=== PATIENT | female | born 1960 | race Caucasian/White ===

== ENCOUNTER 2019-06-02 07:11 | Day surgery (SDC) | payer OTHER ==
[~2019-06-02] VITALS: Ht 172.7 cm; Wt 60.3 kg
[~2019-06-02 07:11] MED LIST: ASPIR-LOW81 MG PO; LISINOPRIL20 MG PO; OMEGA-31000 MG PO; POTASSIUM ACID T1 GM MISC
--- NOTE | 2019-06-02 08:27 | NUR ---
06/02/19 0827 Noelle Torres 0820 PATIENT ARRIVED DROWSY, RESTING WITH EYES CLOSED. AWAKES TO STIMULUS. OXYGEN SATURATION 98% ON 2L NC. 0826 PATIENT EYES OPENED AND LOOKING AROUND. TITRATED OXYGEN OFF, ENCOURAGED PATIENT TO TAKE DEEP BREATHS.
--- NOTE | 2019-06-02 11:31 | OR ---
[facility] [address], [place] [address] Signed DATE OF OPERATION: 06/02/2019 SURGEON: Mansoor Lacey MD PREOPERATIVE DIAGNOSIS: Screening. POSTOPERATIVE DIAGNOSES: 1. Long redundant colon. 2. [id number] internal hemorrhoids. PROCEDURE: Colonoscopy without biopsy up to the hepatic flexure. ESTIMATED BLOOD LOSS: None. INDICATIONS: Anjelica is a 59-year-old female, asked to see me for her initial screening colonoscopy. She reminded me I helped her with his colonoscopy. She told me she has no lower GI complaints. There is no family history of colon cancer or polyps. I did review colonoscopy with her in detail. She understands the nature of the test along with the risks including, but not limited to gas bloating, crampy abdominal pain, bleeding, perforation requiring surgery, and missed diagnosis. We also discussed the need for IV conscious sedation. She had expressed understanding and wished to proceed. PROCEDURE NOTE: Anjelica was taken in the endoscopy suite and placed in the left lateral decubitus position. We did review her smoking and daily alcohol use. Nevertheless, she did very well with 7 mg of Versed and 200 mcg of fentanyl. A digital rectal exam was performed and this was unremarkable. The adult colonoscope was introduced and advanced under direct visualization of camera. Her prep was quite excellent. We found that she has a very long redundant colon. With moderate amount of effort, we finally made it to the hepatic flexure. We had to use additional sedation, abdominal compression, and rotate Anjelica into the supine position then back into the left lateral decubitus position. We never did make it down in the right colon nor did we have received the ileocecal valve or the cecum. After this, the scope was slowly withdrawn. Indeed, she has a very long redundant colon. We saw no pathology otherwise. The rectum was unremarkable. Upon retroflexion of scope, she has some very minimal routine internal hemorrhoid tissue. The gas was then suctioned out and the colonoscope removed. Anjelica tolerated procedure Electronically Signed By: MANSOOR LACEY MD 06/02/19 1131 PATIENT NAME: ANJELICA FERGUSON OPERATIVE REPORT DATE OF : 64 REPORT #: [id number] PHYSICIAN: MANSOOR LACEY MD PCP: JANEEN METCALF PAC REPORT IS CONFIDENTIAL AND NOT TO BE RELEASED WITHOUT AUTHORIZATION [facility] [address] [place] [id number] Signed quite well. RECOMMENDATIONS: Anjelica will need a barium enema to evaluate the right colon. Then, we will have her follow up in the office to review her studies in detail. MD KHLOE Tapia/MARVL /[id number] cc: CHRIS Bloom MD Copies: MANSOOR LACEY MD ~ Electronically Signed By: MANSOOR LACEY MD 06/02/19 1131 PATIENT NAME: ANJELICA FERGUSON OPERATIVE REPORT DATE OF : 64 REPORT #: [id number] PHYSICIAN: MANSOOR LACEY MD PCP: JANEEN METCALF PAC REPORT IS CONFIDENTIAL AND NOT TO BE RELEASED WITHOUT AUTHORIZATION
== END 2019-06-02 09:10 | disposition home or self-care (01) ==
LOC: OPS 07:11 → DS 07:15 → OPS 08:15
PROVIDERS: Colon & Rectal Surgery
PROC: 0DJD8ZZ Inspection of Lower Intestinal Tract, Via Natural or Artificial Opening Endoscopic (ICD-10-PCS; principal; 2019-06-02 08:15)
DX: Z12.11 Encounter for screening for malignant neoplasm of colon (principal); K64.8 Other hemorrhoids; Q43.8 Other specified congenital malformations of intestine; I10 Essential (primary) hypertension; F17.200 Nicotine dependence, unspecified, uncomplicated; F17.210 Nicotine dependence, cigarettes, uncomplicated; Z79.82 Long term (current) use of aspirin; Z79.899 Other long term (current) drug therapy
CPT/HCPCS: 99153; G0500; J2250; J3010; J7121